=== PATIENT | female | born 1965 | race Caucasian/White ===

== ENCOUNTER 2017-09-07 12:47 | Day surgery (SDC) | payer OTHER ==
[2017-09-07] MEDS ORDERED: FENTAnyl 50 MCG/ML VIAL (15:59)
[2017-09-07] MEDS ORDERED: MIDAZOLAM 1 MG/ML 2 ML INJ ×2 (15:59)
== END 2017-09-07 16:40 | disposition home or self-care (01) ==
LOC: GIL 12:47
DX: K92.1 Melena (principal); D12.0 Benign neoplasm of cecum; K29.60 Other gastritis without bleeding; K64.4 Residual hemorrhoidal skin tags; K64.8 Other hemorrhoids; I10 Essential (primary) hypertension; E11.9 Type 2 diabetes mellitus without complications
CPT/HCPCS: 43239; 82962; 87081; 88305